=== PATIENT | female | born 1955 | race Caucasian/White ===

== ENCOUNTER 2018-04-11 16:03 | Outpatient (CLI) | payer OTHER | END 2018-04-11 16:04 | disposition home or self-care (01) | LOC: BICMAMMO 16:03 | PROVIDERS: ATTEND Obstetrics & Gynecology | DX: Z12.31 Encounter for screening mammogram for malignant neoplasm of breast (principal); Z80.3 Family history of malignant neoplasm of breast; Z85.3 Personal history of malignant neoplasm of breast | CPT/HCPCS: 77063; 77067 ==

== ENCOUNTER 2018-08-15 14:06 | Outpatient (CLI) | payer BC ==
--- NOTE | 2018-08-15 15:28 | BD ---
BONE DENSITOMETRY: INDICATION: A 62-year-old female for postmenopausal osteoporosis screening. FINDINGS: Lumbar Spine: BMD (g/cm2) L1 0.700 T-Score: -2.6 L2 0.843 T-Score: -1.7 L3 0.824 T-Score: -2.4 L4 0.795 T-Score: -2.4 L1-L4 0.794 T-Score: -2.3 Femoral Neck: 0.722 T-Score: -1.1 Total Femur: 1.088 T-Score: -1.2 Impression: Bone mineral density of the femoral neck and lumbar spine both indicate osteopenia. The L1, L3, and L4 vertebrae, however, are approaching osteoporotic range. POS: RACHAEL
== END 2018-08-15 14:07 | disposition home or self-care (01) ==
LOC: BICMAMMO 14:06
PROVIDERS: ATTEND Internal Medicine Hematology & Oncology
DX: C50.919 Malignant neoplasm of unspecified site of unspecified female breast (principal); M85.89 Other specified disorders of bone density and structure, multiple sites
CPT/HCPCS: 77080

== ENCOUNTER 2019-04-18 08:05 | Outpatient (CLI) | payer BC ==
--- NOTE | 2019-04-18 08:53 | MMO ---
Bilateral MAMMO Bilat Screen [facility]. CLINICAL HISTORY: Patient is 63 years old and is seen for screening. The patient has the following family history of breast cancer: mother, at age 80 and sister, at age 61. The patient has a history of malignant (generic) in the left breast at age 47. The patient has a history of left Lumpectomy at age 47 - malignant, left Ultrasound Guided Core Biopsy at age 47 - malignant and left Excisional Biopsy in 1970's - benign. VIEWS: The views performed were: bilateral craniocaudal with tomosynthesis; bilateral mediolateral oblique with tomosynthesis; and left exaggerated craniocaudal. FILMS COMPARED: The present examination has been compared to prior imaging studies performed at [facility] on 03/04/2015, 03/10/2016, 03/30/2017 and 04/11/2018. MAMMOGRAM FINDINGS: There are scattered fibroglandular densities. Finding 1: There is a stable area of architectural distortion with associated post-surgical scar seen in the left breast. Finding 2: There are stable benign appearing calcifications seen in both breasts. There are no suspicious masses, suspicious calcifications, or new areas of architectural distortion. IMPRESSION: THERE IS NO MAMMOGRAPHIC EVIDENCE OF MALIGNANCY. A ROUTINE FOLLOW-UP MAMMOGRAM IN 1 YEAR IS RECOMMENDED. THE RESULTS OF THIS EXAM WERE SENT TO THE PATIENT. ACR BI-RADS Category 2 - Benign finding MAMMOGRAPHY NOTE: 1. A negative mammogram report should not delay a biopsy if a dominant of clinically suspicious mass is present. 2. Approximately 10% to 15% of breast cancers are not detected by mammography. 3. Adenosis and dense breasts may obscure an underlying neoplasm. Reported by: COURTNEY YEE MD Electonically Signed: [id number]
== END 2019-04-18 08:06 | disposition home or self-care (01) ==
LOC: BICMAMMO 08:05
PROVIDERS: ATTEND Internal Medicine Hematology & Oncology
DX: Z12.31 Encounter for screening mammogram for malignant neoplasm of breast (principal); Z85.3 Personal history of malignant neoplasm of breast; Z80.3 Family history of malignant neoplasm of breast
CPT/HCPCS: 77063; 77067

== ENCOUNTER 2020-05-01 12:33 | Outpatient (CLI) | payer OTHER ==
--- NOTE | 2020-05-01 13:01 | MMO ---
Bilateral MAMMO Bilat Screen [facility]. CLINICAL HISTORY: Patient is 64 years old and is seen for screening. The patient has the following family history of breast cancer: mother, at age 80 and sister, at age 61. The patient has a history of malignant (generic) in the left breast at age 47. The patient has a history of left Lumpectomy at age 47 - malignant, left Ultrasound Guided Core Biopsy at age 47 - malignant and left Excisional Biopsy in 1970's - benign. VIEWS: The views performed were: bilateral craniocaudal with tomosynthesis and bilateral mediolateral oblique with tomosynthesis. FILMS COMPARED: The present examination has been compared to prior imaging studies performed at [facility] on 03/10/2016, 03/30/2017, 04/11/2018 and 04/18/2019. This study has been interpreted with the assistance of computer-aided detection. MAMMOGRAM FINDINGS: There are scattered fibroglandular densities. Finding 1: There are stable post operative changes seen in the left breast. Finding 2: There are stable benign appearing calcifications seen in both breasts. There are no suspicious masses, suspicious calcifications, or new areas of architectural distortion. IMPRESSION: THERE IS NO MAMMOGRAPHIC EVIDENCE OF MALIGNANCY. A ROUTINE FOLLOW-UP MAMMOGRAM IN 1 YEAR IS RECOMMENDED. THE RESULTS OF THIS EXAM WERE SENT TO THE PATIENT. ACR BI-RADS Category 2 - Benign finding MAMMOGRAPHY NOTE: 1. A negative mammogram report should not delay a biopsy if a dominant of clinically suspicious mass is present. 2. Approximately 10% to 15% of breast cancers are not detected by mammography. 3. Adenosis and dense breasts may obscure an underlying neoplasm. Reported by: LASHAUN LAU MD Electonically Signed: [id number]
== END 2020-05-01 12:34 | disposition home or self-care (01) ==
LOC: BICMAMMO 12:33
PROVIDERS: ATTEND Obstetrics & Gynecology
DX: Z12.31 Encounter for screening mammogram for malignant neoplasm of breast (principal); Z80.3 Family history of malignant neoplasm of breast; Z85.3 Personal history of malignant neoplasm of breast; Z98.890 Other specified postprocedural states; Z91.89 Other specified personal risk factors, not elsewhere classified
CPT/HCPCS: 77063; 77067

== ENCOUNTER 2020-07-10 19:19 | Inpatient (IN) | payer OTHER ==
[2020-07-10] MEDS ORDERED: Cefepime 2 GM VIAL ONE (19:49)
[2020-07-10] MEDS ORDERED: Ondansetron PF 4 MG/2 ML Vial ONE (19:55)
[2020-07-10 19:59] LABS: #Monocytes 0.6 thou/uL (0.11-0.59); #Neutrophils 17.7 thou/uL (1.40-6.50); %Basophils 0.1 % (0.0-1.0); %Eosinophils 0.2 % (0.0-10.0); %Lymphocytes 5.3 % (21.0-51.0); %Monocytes 3.2 % (0.0-10.0); %Neutrophils 91.1 % (42.0-75.0); Hemoglobin 13.9 g/dL (12.0-16.0); Mean Corpuscular HGB CONC 34.6 g/dL (32.0-36.0); Mean Corpuscular Hemoglobin 29.6 pg (27.0-31.0); Mean Corpuscular Volume 85.6 fL (78.0-98.0); Mean Platelet Volume 7.4 fL (7.4-10.4); Platelet Count 296 thou/uL (130-400); RBC Distribution Width 12.7 % (11.5-14.5); Red Blood Cell (RBC) Count 4.71 mill/uL (4.20-5.40); White Blood Cell (WBC) Count 19.4 thou/uL (4.8-10.8)
[2020-07-10 20:20] LABS: ALT (SGPT) 16 U/L (8-55); AST (SGOT) 20 U/L (5-34); Albumin 4.5 g/dL (3.4-4.8); Alkaline Phosphatase 65 U/L (40-110); Anion Gap 16 mmol/L (10-20); BUN (Urea Nitrogen) 13 mg/dL (9.8-20.1); Bilirubin, Total 0.9 mg/dL (0.2-1.2); Calc. Creatinine Clearance 0 mL/min (70-130); Calcium 9.2 mg/dL (7.8-10.44); Carbon Dioxide 23 mmol/L (23-31); Chloride 104 mmol/L (98-107); Estimated GFR-MDRD 57; Globulin 2.6 g/dL (2.4-3.5); Glucose 146 mg/dL (80-115); Potassium 3.7 mmol/L (3.5-5.1); Protein, Total 7.1 g/dL (6.0-8.3); Sodium 139 mmol/L (136-145)
[2020-07-10 21:40] LABS: Bilirubin Negative (Negative); Blood, Urine Trace (Negative); Clarity Clear (Clear); Glucose, Urine (Dipstick) Normal (Negative); Ketone, Urine 20 mg/dL (Negative); Leukocyte 25 Leu/uL (Negative); Nitrite Negative (Negative); Protein, Urine (Dipstick) Negative (Neg-Trace); RBC/HPF 0-3 HPF (0-3); Specific Gravity, Urine 1.011 (1.002-1.036); Squamous Epithelial 0-3 HPF (0-3); Urobilinogen Normal mg/dL (Less than 2)
[2020-07-10 21:41] LABS: Bacteria/HPF Rare-Few HPF (None Seen)
[2020-07-10] MEDS ORDERED: Ketorolac Tromethamine 30 MG/ML VIAL ONE (22:02)
[2020-07-10] MEDS ORDERED: hydrALAZINE 20 MG/ML VIAL SLOW IVP PRN (22:22)
[2020-07-10] MEDS ORDERED: HYDROcodone/Acetaminophen 5/325 mg Tablet PO PRN (22:22)
[2020-07-10] MEDS ORDERED: Guaifenesin DM 100-10/5 ML UDCUP PO PRN (22:22)
[2020-07-10] MEDS ORDERED: Promethazine HCl 12.5 MG in Sodium Chloride 0.9% 50 ML IVPB PRN (22:22)
[2020-07-10] MEDS ORDERED: cloNIDine 0.1 MG TAB PO PRN (22:22)
[2020-07-10] MEDS ORDERED: Labetalol HCl 100 MG/20 ML VIAL SLOW IVP PRN (22:22)
[2020-07-10] MEDS ORDERED: Acetaminophen 325 MG TAB PO PRN (22:22)
[2020-07-10] MEDS ORDERED: Ondansetron PF 4 MG/2 ML Vial IVP PRN (22:22)
--- NOTE | 2020-07-10 22:23 | PDOC.HHP ---
Hospitalist HPI - History of Present Illness L upper extremity rash History of Present Illness: Patient is a 64 year old female with PMH breast cancer, lumpectomy who presents for recurrent R upper extremity rash. Patient had a L sided lumpectomy and lymph node dissection 2 months ago, she also developed cellulitis of the left upper extremity around then which improved with abx completely, she took bactrim, however today she again developed a new L upper extremity rash. She reports a fever and vomiting as well. No open wounds, no port or implants, no obvious portal of entry. Rash began around noon today In ED, patient febrile 100.7, tachycardic, with WBC 19. Patient given vancomycin and cefepime, admitted for further workup and care. Her oncologist is Dr Ovalles. Hospitalist ROS - Review of Systems Constitutional: reports: fever. denies: chills, sweats, weakness, malaise, other Eyes: denies: pain, vision change, conjunctivae inflammation, eyelid inflammation, redness, other ENT: denies: ear pain, ear discharge, nose pain, nose discharge, nose congestion, mouth pain, mouth swelling, throat pain, throat swelling, other Respiratory: denies: cough, dry, shortness of breath, hemoptysis, SOB with excertion, pleuritic pain, sputum, wheezing, other Cardiovascular: denies: chest pain, palpitations, orthopnea, paroxysmal noc. dy spnea, edema, light headedness, other Gastrointestinal: reports: vomiting. denies: nausea, abdominal pain, diarrhea, constipation, melena, hematochezia, other Genitourinary: denies: dysuria, frequency, incontinence, hematuria, retention, other Musculoskeletal: denies: neck pain, shoulder pain, arm pain, back pain, hand [place] n, leg pain, foot pain, other Skin: reports: rash (see hpi). denies: lesions, angel, bruising, other Neurological: denies: weakness, numbness, incoordination, change in speech, confusion, seizures, other All other systems reviewed; all pertinent +/- noted in HPI/Subj - Medication Medications: glipiZIDE-metformin MonJul 10, 2020 22:33 EMILY Soto, [place] tablet : Strength - 2.5 mg-500 mg : ORAL Patient Dose: UNK. lisinopril MonJul 10, 2020 22:34 EMIYL Soto, [place]yl[place] tablet : Strength - 20 mg : ORAL Patient Dose: UNK. letrozole MonJul 10, 2020 22:34 EMILY Soto, [place] tablet : Strength - 2.5 mg : ORAL Patient Dose: 2.5 mg once a day (at bedtime). simvastatin MonJul 10, 2020 22:35 EMILY Soto, [place]yl[place] tablet : Strength - 10 mg : ORAL Patient Dose: UNK. hydroCHLOROthiazide MonJul 10, 2020 22:35 EMILY Soto, [place]yl[place] tablet : Strength - 12.5 mg : ORAL Patient Dose: UNK. FLUoxetine MonJul 10, 2020 22:36 EMILY Soto, Cheylbi capsule : Strength - 10 mg : ORAL Patient Dose: UNK. Hospitalist History - Past Medical History Other Medical History: breast cancer, diabtetes - Past Surgical History Other Surgical History: L arm lumpectomy, lymph node dissection - Family History Family History: reports: no pertinent history - Social History Smoking Status: Never smoker Alcohol: reports: None Drugs: reports: none - Exam General Appearance: NAD, awake alert Eye: PERRL, anicteric sclera ENT: normocephalic atraumatic, no oropharyngeal lesions, moist mucosa Neck: supple, symmetric, no JVD, no thyromegaly, no lymphadenopathy, no carotid bruit Heart: RRR, no murmur, no gallops, no rubs, normal peripheral pulses Respiratory: CTAB, no wheezes, no rales, no ronchi, normal chest expansion, no tachypnea, normal percussion Gastrointestinal: soft, non-tender, non-distended, normal bowel sounds, no palpable masses, no hepatomegaly, no splenomegaly, no bruit Extremities: no cyanosis, no clubbing, no edema Extremities - other findings: L upper extremity w/ erythema and edema on most of arm and forearm no focus Skin: normal turgor, no lesions Skin - other findings: as above Neurological: cranial nerve grossly intact, normal sensation to touch, no weakness, no focal deficits, no new deficit Musculoskeletal: normal tone, normal strength, no muscle wasting Psychiatric: normal affect, normal behavior, A&O x 3 Hospitalist Results - Labs Result Diagrams: 07/10/20 19:48 07/10/20 19:48 Lab results: WBC 19.4 thou/uL (4.8-10.8) H 07/10/20 19:48 Hgb 13.9 g/dL (12.0-16.0) 07/10/20 19:48 Hct 40.3 % (36.0-47.0) 07/10/20 19:48 MCV 85.6 fL (78.0-98.0) 07/10/20 19:48 Plt Count 296 thou/uL (130-400) 07/10/20 19:48 Neutrophils % 91.1 % (42.0-75.0) H 07/10/20 19:48 Sodium 139 mmol/L (136-145) 07/10/20 19:48 Potassium 3.7 mmol/L (3.5-5.1) 07/10/20 19:48 Chloride 104 mmol/L (98-107) 07/10/20 19:48 Carbon Dioxide 23 mmol/L (23-31) 07/10/20 19:48 BUN 13 mg/dL (9.8-20.1) 07/10/20 19:48 Creatinine 0.98 mg/dL (0.6-1.1) 07/10/20 19:48 Glucose 146 mg/dL (80-115) H 07/10/20 19:48 Lactic Acid 1.9 mmol/L (0.5-2.2) 07/10/20 19:48 Calcium 9.2 mg/dL (7.8-10.44) 07/10/20 19:48 Total Bilirubin 0.9 mg/dL (0.2-1.2) 07/10/20 19:48 AST 20 U/L (5-34) 07/10/20 19:48 ALT 16 U/L (8-55) 07/10/20 19:48 Alkaline Phosphatase 65 U/L (40-110) 07/10/20 19:48 Serum Total Protein 7.1 g/dL (6.0-8.3) 07/10/20 19:48 Albumin 4.5 g/dL (3.4-4.8) 07/10/20 19:48 Urine Ketones 20 mg/dL (Negative) A 07/10/20 21:17 Urine Blood Trace (Negative) A 07/10/20 21:17 Urine Nitrite Negative (Negative) 07/10/20 21:17 Ur Leukocyte Esterase 25 Greg/uL (Negative) A 07/10/20 21:17 Urine RBC 0-3 HPF (0-3) 07/10/20 21:17 Urine WBC 4-6 HPF (0-3) A 07/10/20 21:17 Ur Squamous Epith Cells 0-3 HPF (0-3) 07/10/20 21:17 Urine Bacteria Rare-Few HPF (None Seen) 07/10/20 21:17 Additional comment: VITAL SIGNS MonJul 10, 2020 22:30 Charles, RN, J Luis BP: 114/60 Pulse: 105 Resp: 16 Pain: 4 O2 sat: 95 on (Room Air) Time: 07/10/2020 22:30. ED documents, labs, imaging reports reviewed Hospitalist H&P A/P - Plan Plan: Patient is a 64 year old female with PMH breast cancer, lumpectomy who presents for recurrent R upper extremity rash. # nonpurulent cellulitis # sepsis secondary to cellulitis # history of breast cancer, lumpectomy Patient had a L sided lumpectomy and lymph node dissection 2 months ago and had LUE celluliits then which resolved with bactrim, today she again developed a new L upper extremity rash, fever and vomiting. In ED, patient febrile 100.7, tachycardic, with WBC 19. Patient given vancomycin and cefepime, admitted for further workup and care. Her oncologist is Dr Ovalles. - admit to floor - continue vancomycin - IVF - follow up blood cultures # DM - ssi DVT/GI ppx
[2020-07-10] MEDS ORDERED: Electrolyte Replacement Protoc 1 EACH EACH FS SCH (22:30)
[2020-07-11 00:50] VITALS: BMI 34.6
[2020-07-11] MEDS ORDERED: Dextrose 50% Abboject 50 ML SYRINGE SLOW IVP PRN (02:21)
[2020-07-11] MEDS ORDERED: Dextrose 5% in Water 1,000 ML IV PRN (02:21)
[2020-07-11] MEDS ORDERED: HumaLOG 300 UNITS/3 ML VIAL SC PRN (02:21)
[2020-07-11] MEDS: Sodium Chloride 0.9% 1,000 ML IV SCH ×2 (04:01→15:02)
[2020-07-11 06:10] LABS: #Lymphocytes 2.1 thou/uL (1.20-3.40); #Monocytes 0.7 thou/uL (0.11-0.59); #Neutrophils 11.2 thou/uL (1.40-6.50); %Basophils 0.3 % (0.0-1.0); %Eosinophils 0.2 % (0.0-10.0); %Lymphocytes 14.6 % (21.0-51.0); %Monocytes 5.2 % (0.0-10.0); %Neutrophils 79.7 % (42.0-75.0); Hemoglobin 12.1 g/dL (12.0-16.0); Mean Corpuscular HGB CONC 34.9 g/dL (32.0-36.0); Mean Corpuscular Volume 85.9 fL (78.0-98.0); Mean Platelet Volume 7.6 fL (7.4-10.4); Platelet Count 243 thou/uL (130-400); RBC Distribution Width 12.7 % (11.5-14.5); Red Blood Cell (RBC) Count 4.04 mill/uL (4.20-5.40)
[2020-07-11 06:30] LABS: Anion Gap 13 mmol/L (10-20); BUN (Urea Nitrogen) 13 mg/dL (9.8-20.1); Calc. Creatinine Clearance 104 mL/min (70-130); Calcium 8.1 mg/dL (7.8-10.44); Carbon Dioxide 23 mmol/L (23-31); Chloride 108 mmol/L (98-107); Estimated GFR-MDRD 73; Glucose 92 mg/dL (80-115); Magnesium 1.9 mg/dL (1.6-2.6); Potassium 3.4 mmol/L (3.5-5.1); Sodium 141 mmol/L (136-145)
[2020-07-11] MEDS ORDERED: Potassium Chloride 20 MEQ TAB PO SCH (07:30)
[2020-07-11] MEDS ORDERED: Magnesium 2 GM/50 ML 2 GM in Premix Bag 1 BAG IVPB SCH (07:30)
[2020-07-11] MEDS: Famotidine 20 MG TAB PO SCH ×2 (08:09→20:10)
[2020-07-11] MEDS ORDERED: FLU VACC QS2020-21(6MOS UP)/PF 60 MCG/0.5 ML SYRINGE IM ONE (09:00)
[2020-07-11] MEDS ORDERED: Doxycycline 100 MG CAP PO SCH ×2 (13:15→21:00)
[2020-07-11] MEDS: FLUoxetine HCl 20 MG CAP PO SCH (14:53)
[2020-07-11] MEDS ORDERED: AMOXicillin 250 MG CAP PO SCH (15:00)
--- NOTE | 2020-07-11 19:25 | PDOC.HOSPP ---
- Subjective Encounter Date: 07/11/20 Encounter Time: 10:00 Subjective: The patient reports improvement in her arm pain, but reports intermittent pain and swelling in her left arm. Her arm pain is worst when she extends her arm. She reports over 50% improvement in her rash She reports not receiving IV antibiotics early this morning. She was switched to oral antibiotic doxycycline and amoxicillin but started having worsening pain/swelling and recurrence of erythema - Objective Vital Signs & Weight: Vital Signs (12 hours) Temp Pulse Resp BP Pulse Ox 07/11/20 15:14 98.7 F 87 18 109/71 97 07/11/20 12:00 98.6 F 82 19 105/68 96 Weight Admit Weight 201 lb 9.6 oz Weight 201 lb 9.6 oz I&O: 07/10/20 07/11/20 07/12/20 06:59 06:59 06:59 Intake Total 560 Balance 560 Result Diagrams: 07/11/20 05:34 07/11/20 05:34 Additional Labs: Accuchecks 07/11/20 07/11/20 07/11/20 15:35 12:04 05:02 POC Glucose 131 H 112 H 92 Hospitalist ROS - Review of Systems Constitutional: denies: fever, chills - Medication Medications: Active Medications Generic Name Dose Route Start Last Admin Trade Name Freq PRN Reason Stop Dose Admin Acetaminophen 650 mg 07/10/20 22:22 07/11/20 08:39 Acetaminophen 325 Mg Tab PO 650 mg Q4H PRN Administration Headache/Fever/Mild Pain (1-3) Famotidine 20 mg 07/11/20 09:00 07/11/20 08:09 Famotidine 20 Mg Tab PO 20 mg BID HUGO Administration Fluoxetine HCl 20 mg 07/11/20 09:00 07/11/20 14:53 Fluoxetine Hcl 20 Mg Cap PO 20 mg DAILY HUGO Administration - Exam General Appearance: NAD, awake alert Eye: PERRL, anicteric sclera ENT: normocephalic atraumatic, no oropharyngeal lesions Neck: no JVD Heart: RRR, no murmur, no gallops, no rubs Respiratory: CTAB, no wheezes, no rales, no ronchi Gastrointestinal: soft, non-tender, non-distended, normal bowel sounds Extremities: no cyanosis, no clubbing Extremities - other findings: LUE swollen from wrist to slightly proximal elbow. Mild warmth Skin: normal turgor, no lesions, no rashes Skin - other findings: Erythema improved then became redder roger near antecubital fossa Neurological: cranial nerve grossly intact, normal sensation to touch, no w eakness Psychiatric: A&O x 3 Hosp A/P - Plan This is a 64 year old female with breast cancer and history of lymphedema who presents with left arm cellulitis Left arm cellulitis - had improvement with IV vancomycin and cefepime. Was switched to amoxicillin and doxycycline but swelling and rash re-occurred two hours later - will continue IV vancomycin and give IV ceftriaxone - blood cultures negative - check LUE doppler History of breast cancer - continue letrazole Type II diabetes - continue insulin sliding scale Hypertension - controlled, hold lisinopril for now Depression - continue fluoxetine
[2020-07-11] MEDS ORDERED: Vancomycin 1 GM in Premix Bag 1 BAG IVPB SCH (19:45)
[2020-07-11] MEDS ORDERED: cefTRIAXone\\ROCEPHIN 1 GM in Sodium Chloride 0.9% 100 ML IVPB SCH (20:00)
[2020-07-11] MEDS: Atorvastatin Calcium 10 MG TAB PO SCH (20:10)
[2020-07-11] MEDS: Enoxaparin Sodium 40 MG/0.4 ML SYRINGE SC SCH (20:11)
[2020-07-11] MEDS ORDERED: Vancomycin HCl 1.25 GM in Sodium Chloride 0.9% 250 ML 250 ML IVPB SCH (21:00)
[2020-07-11] MEDS: Letrozole 2.5 MG TAB PO SCH (21:51)
[2020-07-11] MEDS: cefTRIAXone\\ROCEPHIN 1 GM in Sodium Chloride 0.9% 100 ML IVPB SCH (21:52)
--- NOTE | 2020-07-11 23:30 | ULT ---
US Venous Doppler Lt Unilat History: Left upper extremity swelling. History of breast cancer Comparison: None. Findings: Real-time grayscale, color and spectral analysis of the left upper extremity venous system was performed. The internal jugular, subclavian and axillary veins as well as the basilic, brachial and cephalic veins were interrogated. Normal flow, augmentation and compression. Impression: No deep venous thrombosis.
[2020-07-12 05:56] LABS: Hemoglobin 11.5 g/dL (12.0-16.0); Mean Corpuscular HGB CONC 33.7 g/dL (32.0-36.0); Mean Corpuscular Hemoglobin 29.2 pg (27.0-31.0); Mean Corpuscular Volume 86.7 fL (78.0-98.0); Mean Platelet Volume 7.6 fL (7.4-10.4); Platelet Count 248 thou/uL (130-400); RBC Distribution Width 12.8 % (11.5-14.5); Red Blood Cell (RBC) Count 3.94 mill/uL (4.20-5.40); White Blood Cell (WBC) Count 7.1 thou/uL (4.8-10.8)
[2020-07-12 06:18] LABS: Anion Gap 12 mmol/L (10-20); BUN (Urea Nitrogen) 9 mg/dL (9.8-20.1); Calc. Creatinine Clearance 111 mL/min (70-130); Calcium 7.8 mg/dL (7.8-10.44); Carbon Dioxide 21 mmol/L (23-31); Chloride 112 mmol/L (98-107); Estimated GFR-MDRD 79; Glucose 112 mg/dL (80-115); Potassium 3.9 mmol/L (3.5-5.1); Sodium 141 mmol/L (136-145)
[2020-07-12] MEDS: FLUoxetine HCl 20 MG CAP PO SCH (08:16)
[2020-07-12] MEDS: Famotidine 20 MG TAB PO SCH ×2 (08:16→19:41)
[2020-07-12] MEDS ORDERED: Vancomycin 1 GM in Premix Bag 1 BAG IVPB SCH (09:00)
[2020-07-12] MEDS ORDERED: Non-Formulary Item 1 EACH (Glucosamine/D3/Boswellia Serra [Osteo Bi-Flex One Per Day] 1 T PO SCH (09:00)
[2020-07-12] MEDS ORDERED: metFORMIN 500 MG TAB PO SCH (12:15)
[2020-07-12] MEDS ORDERED: glyBURIDE 5 MG TAB PO SCH (12:15)
--- NOTE | 2020-07-12 16:49 | PDOC.HOSPP ---
- Subjective Encounter Date: 07/12/20 Encounter Time: 12:00 Subjective: The patient states that her left arm pain has improved. Her swelling is better and erythema is resolving. She does have some pain when extending her left arm but much better than yesterday Doppler US left arm showed no clot - Objective Vital Signs & Weight: Vital Signs (12 hours) Temp Pulse Resp BP Pulse Ox 07/12/20 15:25 97.5 F L 82 20 98 07/12/20 10:45 97.5 F L 86 20 123/81 98 07/12/20 07:24 99.7 F H 79 20 126/82 96 Weight Admit Weight 201 lb 9.6 oz Weight 204 lb 4 oz I&O: 07/11/20 07/12/20 07/13/20 06:59 06:59 06:59 Intake Total 560 Balance 560 Result Diagrams: 07/12/20 05:29 07/12/20 05:29 Additional Labs: Accuchecks 07/12/20 07/12/20 07/12/20 15:32 10:52 04:49 POC Glucose 122 H 176 H 121 H 07/11/20 20:23 POC Glucose 164 H Hospitalist ROS - Review of Systems Constitutional: denies: fever, chills - Medication Medications: Active Medications Generic Name Dose Route Start Last Admin Trade Name [place] PRN Reason Stop Dose Admin Acetaminophen 650 mg 07/10/20 22:22 07/11/20 08:39 Acetaminophen 325 Mg Tab PO 650 mg Q4H PRN Administration Headache/Fever/Mild Pain (1-3) Atorvastatin Calcium 10 mg 07/11/20 21:00 07/11/20 20:10 Atorvastatin Calcium 10 Mg Tab PO 10 mg HS HUGO Administration Enoxaparin Sodium 40 mg 07/11/20 21:00 07/11/20 20:11 Enoxaparin Sodium 40 Mg/0.4 Ml Syringe SC 40 mg 2100 HUGO Administration Famotidine 20 mg 07/11/20 09:00 07/12/20 08:16 Famotidine 20 Mg Tab PO 20 mg BID HUGO Administration Fluoxetine HCl 20 mg 07/11/20 09:00 07/12/20 08:16 Fluoxetine Hcl 20 Mg Cap PO 20 mg DAILY HUGO Administration Vancomycin HCl 1 gm/ Device 200 mls @ 200 mls/hr 07/12/20 09:00 07/12/20 08:17 IVPB 200 mls Q12HR HUGO Administration Ceftriaxone Sodium 1 gm/ 100 mls @ 200 mls/hr 07/11/20 22:00 07/11/20 21:52 Sodium Chloride IVPB 100 mls 2200 HUGO Administration Letrozole 2.5 mg 07/11/20 21:00 07/11/20 21:51 Letrozole 2.5 Mg Tab PO 2.5 mg HS HUGO Administration - Exam General Appearance: NAD, awake alert Eye: anicteric sclera Neck: no JVD Heart: RRR, no murmur Respiratory: CTAB, no rales Gastrointestinal: non-distended Extremities - other findings: left arm swelling from wrist to antecubital fossa Skin - other findings: mild erythema on medial portion of left arm, improved from yesterday . Musculoskeletal - other findings: tenderness to palpation of left forearm, mild Psychiatric: A&O x 3, oriented to person Hosp A/P - Plan LUE doppler: no evidence of DVT This is a 64 year old female with breast cancer and history of lymphedema who presents with left arm cellulitis Left arm cellulitis - had improvement with IV vancomycin and cefepime. Was switched to amoxicillin and doxycycline but swelling and rash re-occurred two hours later - blood cultures negative - LUE doppler showed no DVT - advised patient to keep arm elevated History of breast cancer - continue letrazole Type II diabetes - resumed glyburide and metformin. Hypertension - controlled, hold lisinopril for now Depression - continue fluoxetine Dispo: will see if can switch to oral antibiotics tomorrow
[2020-07-12] MEDS: Atorvastatin Calcium 10 MG TAB PO SCH (19:42)
[2020-07-12] MEDS: Letrozole 2.5 MG TAB PO SCH (19:42)
[2020-07-12] MEDS: Enoxaparin Sodium 40 MG/0.4 ML SYRINGE SC SCH (19:43)
[2020-07-12 20:36] LABS: Vancomycin, Trough 8.9 ug/mL
[2020-07-12] MEDS: Vancomycin HCl 1.25 GM in Sodium Chloride 0.9% 250 ML 250 ML IVPB SCH (21:47)
[2020-07-12] MEDS: cefTRIAXone\\ROCEPHIN 1 GM in Sodium Chloride 0.9% 100 ML IVPB SCH (23:20)
[2020-07-13 06:17] LABS: Hemoglobin 11.9 g/dL (12.0-16.0); Mean Corpuscular HGB CONC 33.9 g/dL (32.0-36.0); Mean Corpuscular Hemoglobin 29.5 pg (27.0-31.0); Mean Platelet Volume 7.4 fL (7.4-10.4); Platelet Count 269 thou/uL (130-400); RBC Distribution Width 12.6 % (11.5-14.5); Red Blood Cell (RBC) Count 4.02 mill/uL (4.20-5.40); White Blood Cell (WBC) Count 8.3 thou/uL (4.8-10.8)
[2020-07-13 06:43] LABS: ALT (SGPT) 12 U/L (8-55); AST (SGOT) 14 U/L (5-34); Albumin 3.5 g/dL (3.4-4.8); Alkaline Phosphatase 49 U/L (40-110); Anion Gap 11 mmol/L (10-20); BUN (Urea Nitrogen) 9 mg/dL (9.8-20.1); Bilirubin, Total 0.3 mg/dL (0.2-1.2); Calc. Creatinine Clearance 109 mL/min (70-130); Calcium 7.9 mg/dL (7.8-10.44); Carbon Dioxide 22 mmol/L (23-31); Chloride 112 mmol/L (98-107); Estimated GFR-MDRD 77; Globulin 2.6 g/dL (2.4-3.5); Glucose 115 mg/dL (80-115); Potassium 4.2 mmol/L (3.5-5.1); Protein, Total 6.1 g/dL (6.0-8.3); Sodium 141 mmol/L (136-145)
[2020-07-13 07:06] LABS: Thyroid Stimulating Hormone 1.4113 uIU/mL (0.35-4.94)
[2020-07-13] MEDS ORDERED: metFORMIN 500 MG TAB PO SCH (08:00)
[2020-07-13] MEDS ORDERED: glyBURIDE 5 MG TAB PO SCH (08:00)
[2020-07-13] MEDS: Vancomycin HCl 1.25 GM in Sodium Chloride 0.9% 250 ML 250 ML IVPB SCH (08:18)
[2020-07-13] MEDS: FLUoxetine HCl 20 MG CAP PO SCH (08:18)
[2020-07-13] MEDS: Famotidine 20 MG TAB PO SCH (08:18)
[2020-07-13] MEDS ORDERED: Cyanocobalamin (Vitamin B-12) 1,000 MCG TAB PO SCH (09:00)
[2020-07-13] MEDS ORDERED: Folic Acid 1 MG TAB PO SCH (09:00)
[2020-07-13] MEDS ORDERED: Cefdinir 300 MG CAP PO SCH ×3 (09:54→21:00)
[2020-07-13 13:03] VITALS: BP 131/85; TEMP 97.6
[2020-07-13] MEDS ORDERED: Cephalexin 250 MG CAP PO SCH (18:00)
--- NOTE | 2020-07-14 01:17 | DIS ---
DATE OF ADMISSION: 07/10/2020 DATE OF DISCHARGE: 07/13/2020 DISCHARGE DIAGNOSES: 1. Sepsis secondary to cellulitis. 2. Acute cellulitis. 3. Folic acid deficiency. CONSULTATIONS: None. PROCEDURES: None. BRIEF HISTORY OF PRESENT ILLNESS: This is a 64-year-old female with a past medical history of breast cancer status post axillary lymph node dissection with history of lymphedema in the past, who presented to the emergency room with left upper extremity rash. The patient stated 2 months ago, she developed cellulitis of her left upper extremity. She took Bactrim; however, it was unable to tolerate in the past due to severe nausea. Today, she had developed a new rash. She reported fever and vomiting as well. When she came to the ER, her temperature was 100.7, she was tachycardic with a white blood cell count of 19. She was given vancomycin and cefepime, admitted for further workup. HOSPITAL COURSE: Sepsis secondary to cellulitis: The patient was started on IV vancomycin. The following day, her rash improved by 50%, so she was switched to amoxicillin and doxycycline; however, her rash and swelling started to recur 2 hours later. Therefore, she was resumed on IV vancomycin and ceftriaxone for another 24 hours. On 07/13, her swelling and erythema resolved. She was discharged with Keflex. She should consider prophylaxis with penicillin after she completes her course of Keflex given that this is her second episode of cellulitis in 8 weeks and she is at risk of recurrence given history of lymphedema. She should follow up with her PCP in a week. Her blood cultures were negative. Her white blood cell count came down to 8.3 at time of discharge. Folic acid deficiency: The patient's hemoglobin dropped to 11.9 while in the hospital. Her folate level was 5.6. She was discharged with folic acid supplementation. Her vitamin B12 was 276 as well, so she was discharged with B12 supplementation as well. Consider a repeat testing in a month. DISCHARGE PHYSICAL EXAMINATION: VITAL SIGNS: Temperature 97.6, heart rate 71, respiratory rate 16, O2 saturation 98% on room air, blood pressure 131/85. GENERAL: The patient is obese. She is alert, awake, and oriented x3. CVS: Regular rate and rhythm with no murmurs, rubs, or gallops. LUNGS: Clear to auscultation bilaterally. EXTREMITIES: The patient's left arm is mildly swollen compared to the right; however, there is no tenderness or warmth to palpation and no rash is evident. There is no edema in her lower extremities. ABDOMEN: Positive bowel sounds, soft, nontender, nondistended. PERTINENT LABORATORY DATA: CBC 07/13: White blood cell count 8.3, hemoglobin 11.9, hematocrit 35.0, platelet count 269. BMP 07/13: Unremarkable except for chloride of 112, bicarb of 22. LFTs 07/13: Normal. Vitamin B12: 276. Folate: 5.6. TSH: 1.4. Lactic acid :1.9. UA 07/10: Just 20 ketones, trace blood, 25 leukocyte esterase, 4 to 6 white blood cells. Blood cultures 07/10: Negative. Urine culture 07/10: Negative. Vascular ultrasound on 07/11: Shows no DVT. DISCHARGE CONDITION: Stable. DISCHARGE MEDICATIONS: 1. Keflex 500 mg p.o. q.6 hours. 2. Folic acid 1 mg p.o. daily. 3. Vitamin B12 1000 mcg p.o. daily. DISCHARGE INSTRUCTIONS: The patient to follow up with her PCP in a week. Continue Keflex for 4 days and consider penicillin prophylaxis for a month following that. Job ID: [id number] [facility]
== END 2020-07-13 13:58 | disposition home or self-care (01) | DRG 872 ==
LOC: ERS 19:19 → T4-A 22:14
PROVIDERS: ADMIT Internal Medicine; ATTEND Internal Medicine
DX: A41.9 Sepsis, unspecified organism (principal); L03.114 Cellulitis of left upper limb; E11.9 Type 2 diabetes mellitus without complications; I10 Essential (primary) hypertension; E53.8 Deficiency of other specified B group vitamins; F32.9 Major depressive disorder, single episode, unspecified; Z79.899 Other long term (current) drug therapy; Z85.3 Personal history of malignant neoplasm of breast
CPT/HCPCS: 36415; 36416; 80048; 80053; 80202; 81003; 81015; 82607; 82746; 83605; 83735; 84443; 85025; 85027; 87040; 87086; 93005; 96365; 96366; 96367; 96375; J0692; J0696; J1650; J1885; J2405; J3370; J3475; J3490; J7030; J7050

== ENCOUNTER 2020-07-16 07:56 | Outpatient (CLI) | payer OTHER ==
--- NOTE | 2020-07-16 08:29 | BD ---
DEXA BONE DENSITOMETRY: (Dual energy x-ray absorptiometry) DATE: 07/16/2020 HISTORY: 64-year old white female for age-related, post-menopausal, osteoporosis screening. Weight: 198 lbs Height: 64 in. Age of menopause: 47 COMPARISON: 08/15/2018 FINDINGS: The bone mineral density (BMD) is given in grams per square centimeter (g/cm2): LUMBAR SPINE: BMD (g/cm^2) T score Z score L1: 0.713 -2.5 -1.0 L2: 0.886 -1.3 0.4 L3: 0.815 -2.4 -0.6 L4: 0.831 -2.1 -0.2 Total: 0.816 -2.1 -0.4 Change in BMD compared to previous DEXA: 2.8 %. HIP: BMD (g/cm^2) T score Z score Femoral neck: 0.734 -1.0 0.4 Total: 1.028 0.7 1.9 Change in BMD compared to previous DEXA: -5.5 %. IMPRESSION: 1.) The mean bone mineral density of the lumbar spine is osteopenic. Fracture risk is increased. 2) The bone mineral density of the femoral neck is normal. Fracture risk is not increased.
== END 2020-07-16 07:57 | disposition home or self-care (01) ==
LOC: BICMAMMO 07:56
PROVIDERS: ATTEND Internal Medicine Hematology & Oncology
DX: Z13.820 Encounter for screening for osteoporosis (principal); M85.88 Other specified disorders of bone density and structure, other site; Z78.0 Asymptomatic menopausal state
CPT/HCPCS: 77080

== ENCOUNTER 2021-06-08 08:07 | Outpatient (CLI) | payer OTHER | END 2021-06-08 08:08 | disposition home or self-care (01) | LOC: BICMAMMO 08:07 | PROVIDERS: ATTEND Obstetrics & Gynecology | DX: Z12.31 Encounter for screening mammogram for malignant neoplasm of breast (principal); Z85.3 Personal history of malignant neoplasm of breast; Z80.3 Family history of malignant neoplasm of breast; Z91.89 Other specified personal risk factors, not elsewhere classified; Z98.890 Other specified postprocedural states | CPT/HCPCS: 77063; 77067 ==

== ENCOUNTER 2022-09-12 13:56 | Outpatient (CLI) | payer MEDICARE, OTHER | END 2022-09-12 13:57 | disposition home or self-care (01) | LOC: BICMAMMO 13:56 | PROVIDERS: ATTEND Internal Medicine Hematology & Oncology | DX: Z12.31 Encounter for screening mammogram for malignant neoplasm of breast (principal); Z80.3 Family history of malignant neoplasm of breast; Z85.3 Personal history of malignant neoplasm of breast | CPT/HCPCS: 77063; 77067 ==

== ENCOUNTER 2023-01-18 08:23 | Outpatient (CLI) | payer OTHER | END 2023-01-18 08:24 | disposition home or self-care (01) | LOC: BICMAMMO 08:23 | PROVIDERS: ATTEND Internal Medicine Hematology & Oncology | DX: Z13.820 Encounter for screening for osteoporosis (principal); M85.89 Other specified disorders of bone density and structure, multiple sites; T38.995A Adverse effect of other hormone antagonists, initial encounter; T38.6X5A Adverse effect of antigonadotrophins, antiestrogens, antiandrogens, not elsewhere classified, initial encounter; Z85.3 Personal history of malignant neoplasm of breast | CPT/HCPCS: 77080 ==

== ENCOUNTER 2024-09-24 11:40 | Emergency (ER) | payer OTHER ==
[2024-09-24] MEDS ORDERED: Adenosine 6 mg (2 mL) VIAL ONE ×2 (12:05→12:11)
[2024-09-24] MEDS ORDERED: cefTRIAXone (ROCEPHIN) 2 GM VIAL ONE (12:15)
[2024-09-24] MEDS ORDERED: Sodium Chloride 0.9% 100 ML ONE (12:15)
[2024-09-24 12:28] LABS: #Basophils 0.03 10x3/uL (0.0-0.2); #Eosinophils Less than 0.03 10x3/uL (0.0-0.7); %Basophils 0.3 % (0.0-1.0); %Eosinophils 0.1 % (0.0-10.0); %Lymphocytes 11.3 % (21.0-51.0); %Monocytes 10.1 % (0.0-10.0); %Neutrophils 76.9 % (42.0-75.0); Hematocrit 40.2 % (36.0-47.0); Hemoglobin 13.4 g/dL (12.0-16.0); Mean Corpuscular HGB CONC 33.3 g/dL (32.0-36.0); Mean Corpuscular Volume 80.9 fL (78.0-98.0); Mean Platelet Volume 9.3 fL (7.4-10.4); Platelet Count 298 10x3/uL (130-400); RBC Distribution Width 14.6 % (11.5-14.5); Red Blood Cell (RBC) Count 4.97 mill/uL (4.20-5.40)
[2024-09-24 12:52] LABS: ALT (SGPT) 26 U/L (8-55); AST (SGOT) 35 U/L (5-34); Albumin 3.7 g/dL (3.4-4.8); Alkaline Phosphatase 67 U/L (40-110); Anion Gap 18 mmol/L (10-20); BUN (Urea Nitrogen) 11 mg/dL (9.8-20.1); Bilirubin, Total 0.4 mg/dL (0.2-1.2); Calc. Creatinine Clearance 0 mL/min (70-130); Calcium 8.7 mg/dL (7.8-10.44); Carbon Dioxide 18 mmol/L (23-31); Chloride 105 mmol/L (98-107); Estimated GFR 79; Globulin 3.8 g/dL (2.4-3.5); Glucose 148 mg/dL (80-115); Potassium 4.1 mmol/L (3.5-5.1); Protein, Total 7.5 g/dL (5.8-8.1); Sodium 137 mmol/L (136-145)
[2024-09-24 12:54] LABS: Troponin I 0.079 ng/mL (< 0.028)
[2024-09-24] MEDS ORDERED: Ketorolac Tromethamine 30 MG (1 mL) VIAL ONE (13:43)
[2024-09-24] MEDS ORDERED: Acetaminophen 500 MG TAB ONE (13:43)
[2024-09-24] MEDS ORDERED: Iopamidol-370 76% 500 ML MDV (1 ML CHARGE) ONE (14:07)
[2024-09-24 15:30] LABS: Troponin I 0.099 ng/mL (< 0.028)
== END 2024-09-24 17:24 | disposition home or self-care (01) ==
LOC: ERS 11:40
DX: J10.1 Influenza due to other identified influenza virus with other respiratory manifestations (principal); I47.10 Supraventricular tachycardia, unspecified; R79.89 Other specified abnormal findings of blood chemistry; E11.9 Type 2 diabetes mellitus without complications; Z79.84 Long term (current) use of oral hypoglycemic drugs
CPT/HCPCS: 36415; 71045; 71275; 80053; 83605; 83735; 83880; 84443; 84484; 85025; 87040; 87428; 93005; 96365; 96375; J0153; J0696; J1885; Q9967